=== PATIENT | female | born 1985 | race Caucasian/White ===

== ENCOUNTER 2017-06-24 05:59 | Inpatient (IN) | payer OTHER ==
[2017-06-24] MEDS ORDERED: Sodium Chloride 0.9% 10 ML Syringe FLUSH PRN (07:47)
[2017-06-24] MEDS ORDERED: Nalbuphine 20 MG/1 ML Amp IVPUSH PRN (07:47)
--- NOTE | 2017-06-24 07:57 | HP ---
DATE OF ADMISSION: 06/24/2017 ADMISSION DIAGNOSES: A 39 and 5/7th week intrauterine , history of previous section with desire for . HISTORY OF PRESENT ILLNESS: The patient is a 32-year-old, 4, para 3-0-0-3 white female who was admitted at 39 and 5/7th weeks gestational age with an EDGAR of 06/26/2017 for elective induction of labor for distance from the hospital. The patient lives in [place], [place]. She has had 1 section which was performed with her first for failure to progress. She has since had 2 successful vaginal births after section. The patient is aware of the process for trial of labor after section to achieve a vaginal after section, its risks, benefits, limitations, alternatives of care and followup. She wishes to proceed and has signed a consent. MARKETING PROJECT SPECIALIST HISTORY: 4, para 3-0-0-3. The patient has an EDGAR of 06/26/2017 as based upon a certain last menstrual period started on 09/09/2016 and lasting for approximately 5 days. She was not using any control at the time of conception. The patient has had an ultrasound done on 03/06/2017 at 24 weeks, which was consistent with her LMP dating. PAST OBSTETRIC HISTORY: Includes the followin. Male born on 07/22/2010 at 41 weeks' gestational age - 8 pounds 15 ounces - male - primary section for failure to progress. 2. Female infant born on [birth year]16/2012 at 41 weeks' gestational age after 12 hours of labor - normal spontaneous vaginal delivery - child's name is Mary Anthony. 3. Male infant born on 11/16/2013 at 40 and 3/7th weeks gestational age after 14 hours of labor - 8 pounds 7 ounces - [facility] - child's name is Kendrick Sierra. The patient was first seen for care on 12/11/2016 at 11 and 6/7th weeks gestational age. She was seen on a fairly regular basis. Her weight gain was from a pregravid weight of 160 pounds to a final weight of 193 pounds at last visit. Her vital signs remained stable throughout the course. Her fundal height growth was appropriate. The patient declined genetic screening. She notes increased distance from the hospital as she lives in [place], [place], approximately 2-1/2 to 3 hours from [place]. She is group B Strep negative. She plans on . She plans on doing a natural labor. LABORATORY TESTING: Shows blood to be O positive with a negative antibody screen. Hemoglobin at first visit was 14.1 g/dL. Platelets were 184,000. Pap smear was normal. Rubella titer showed immunity. RPR is nonreactive. Urine culture was negative. Hepatitis B and HIV assays were both negative. Chlamydia and gonorrhea assays both negative. Second trimester testing showed hemoglobin to be normal at 12.8 g/dL. Platelets were normal at 198,000. Her 1-hour GTT was normal at 130. Group B Strep screen was negative. ALLERGIES: 1. Ceclor which causes rash and vomiting. 2. Sulfa drugs, which cause rash and vomiting. CURRENT MEDICATIONS: vitamins 1 daily. PAST MEDICAL HISTORY: 1. Vaginal delivery x2. 2. Endometriosis diagnosed with laparoscopy in 2009. 3. History of mildly abnormal Pap smear in 2014. 4. Some mild depression after her first . Has not recurred with 2nd or 3rd pregnancies. PAST SURGICAL HISTORY: 1. Diagnostic laparoscopy for endometriosis in 2009. 2. Wrist surgery in 2007 and 2008. 3. Ear tubes as a child. 4. Tonsillectomy and adenoidectomy as a child. 5. in 2012 for failure to progress. FAMILY HISTORY: Mother has a history of ovarian cysts. Father is alive and well. One brother with questionable depression and alcohol overuse. Maternal grandmother secondary to stomach cancer. Maternal grandfather has had some heart disease, but is alive and generally doing well. Paternal grandmother is alive and well. Paternal grandfather secondary to lung cancer - was a smoker. No bleeding, clotting, anesthesia, or problems noted in the family. SOCIAL HISTORY: The patient is . is Marcelo Rico. They live in [place], [place]. She is a college graduate. She is a legal consultant. She does not use any significant amounts of alcohol, drugs, or tobacco. REVIEW OF SYSTEMS: GENERAL: The patient is doing well. Baby has been active. No concerns noted. SKIN: Negative. CARDIOVASCULAR: No chest pain or exercise intolerance. RESPIRATORY: No shortness of breath or infectious symptoms. BREASTS: Changes associated with . The patient plans to breastfeed. GASTROINTESTINAL: Negative. GENITOURINARY: Changes associated with including increase in fundal height. MUSCULOSKELETAL: Negative. NEUROLOGIC: Negative. PHYSICAL EXAMINATION: GENERAL: The patient is a well-developed, well-nourished, pleasant female, stated age, in no acute distress. She appears to be a good historian. VITAL SIGNS: Blood pressure on last evaluation in the clinic was 112/60, weight was 193, and heart rate was 144. Pregravid weight was 160. Height is 5 feet 5 inches. SKIN: Warm and dry without lesions. LUNGS: Clear with good breath sounds in all lung zhu. HEENT, NECK AND BACK: Within normal limits. CARDIOVASCULAR: Shows regular rate and rhythm without murmurs. BREASTS: Deferred having been done at first visit and found to be normal. ABDOMEN: Protuberant with with fundal height of 39+ cm. Baby is in a vertex presentation by Jerzy maneuvers. GENITAL: Shows cervix to be 2+ cm, 75% effaced, soft, -3 station, mid position. EXTREMITIES: Show no significant edema. NEUROLOGIC: Grossly within normal limits. ASSESSMENT: 1. A 39 and 5/7th week intrauterine , history of previous section with 2 successful VBACs since with desire for a trial of labor after section to achieve a vaginal after section. 2. Group B Strep screen is negative. 3. The patient plans to breastfeed. 4. Rubella titer shows immunity. 5. The patient desires natural labor. PLAN: 1. Artificial rupture of membranes/Pitocin induction of labor. The procedure, risks, benefits, special preparation as she is a to include labs, consent for and for repeat section, continuous monitoring, IV access. We will alert the OR and the anesthesia staff that the patient is a . 2. Support decision. 3. Natural labor or pain control as desired by the patient. MMODAL /[id number]
[2017-06-24] MEDS ORDERED: Oxytocin/Lactated Ringers 10 UNIT/1,000 ML BAG IV SCH ×2 (08:00→08:45)
[2017-06-24] MEDS: Lactated Ringers 1,000 ML IV SCH ×3 (08:55→17:19)
[2017-06-24] MEDS ORDERED: Lidocaine 1% 50 ML MDV INJECT ONE (12:00)
[2017-06-24] MEDS ORDERED: fentaNYL 100 MCG/2 ML SDV EPIDUR PRN (16:58)
[2017-06-24] MEDS ORDERED: diphenhydrAMINE 50 MG/ML SDV IVPUSH PRN (16:58)
[2017-06-24] MEDS ORDERED: ePHEDrine 50 MG/ML SDV IVPUSH PRN (16:58)
[2017-06-24] MEDS ORDERED: Bupivacaine/fentaNYL/NS 100 ML Bag EPIDUR SCH (17:00)
--- NOTE | 2017-06-24 17:31 | PCM.PREANE ---
Preanesthetic Assessment - Anesthesia/Transfusion/Family Hx Anesthesia History: Prior Anesthesia Without Reaction Family History of Anesthesia Reaction: No Transfusion History: No Prior Transfusion(s) Type of Transfusion Reactions: Reports: Unknown - Review of Systems General: No Symptoms Pulmonary: No Symptoms Cardiovascular: No Symptoms Gastrointestinal: No Symptoms Neurological: No Symptoms Other: Reports: None - Physical Assessment Pulse: 104 O2 Sat by Pulse Oximetry: 97 Respiratory Rate: 18 Blood Pressure: 118/72 Temperature: 36.2 C Vital Signs: Last Vital Signs Temp 36.2 C 06/24/17 07:47 Pulse 104 H 06/24/17 07:47 Resp 18 06/24/17 07:47 BP 118/72 06/24/17 07:47 Pulse Ox 97 06/24/17 07:47 Height: 1.7 m Weight: 91.217 kg ASA Class: 2 Mental Status: Alert & Oriented x3 Airway Class: Mallampati = 1 Dentition: Reports: Normal Dentition Thyro-Mental Finger Breadths: 3 Mouth Opening Finger Breadths: 3 ROM/Head Extension: Full Lungs: Clear to Auscultation, Normal Respiratory Effort Cardiovascular: Regular Rate, Regular Rhythm - Lab Values: Laboratory Last Values WBC 9.13 K/mm3 (3.98-10.04) 06/24/17 08:00 RBC 4.43 M/mm3 (3.98-5.22) 06/24/17 08:00 Hgb 12.5 gm/L (11.2-15.7) 06/24/17 08:00 Hct 38.2 % (34.1-44.9) 06/24/17 08:00 MCV 86.2 fl (79.4-94.8) 06/24/17 08:00 MCH 28.2 pg (25.6-32.2) 06/24/17 08:00 MCHC 32.7 g/dl (32.2-35.5) 06/24/17 08:00 RDW Std Deviation 42.0 fL (36.4-46.3) 06/24/17 08:00 Plt Count 166 K/mm3 (182-369) L 06/24/17 08:00 MPV 10.4 fl (9.4-12.3) 06/24/17 08:00 Neut % (Auto) 81.0 % (34.0-71.1) H 06/24/17 08:00 Lymph % (Auto) 12.9 % (19.3-51.7) L 06/24/17 08:00 Davie % (Auto) 4.3 % (4.7-12.5) L 06/24/17 08:00 Eos % (Auto) 1.2 (0.7-5.8) 06/24/17 08:00 Baso % (Auto) 0.2 % (0.1-1.2) 06/24/17 08:00 Neut # (Auto) 7.39 K/mm3 (1.56-6.13) H 06/24/17 08:00 Lymph # (Auto) 1.18 K/mm3 (1.18-3.74) 06/24/17 08:00 Davie # (Auto) 0.39 K/mm3 (0.24-0.36) H 06/24/17 08:00 Eos # (Auto) 0.11 K/mm3 (0.04-0.36) 06/24/17 08:00 Baso # (Auto) 0.02 K/mm3 (0.01-0.08) 06/24/17 08:00 Manual Slide Review Abnormal smear 06/24/17 08:00 Blood Type O POSITIVE 06/24/17 08:00 Gel Antibody Screen Negative 06/24/17 08:00 - Allergies Allergies/Adverse Reactions: Allergies Allergy/AdvReac Type Severity Reaction Status Date / Time cefaclor [From [facility]] Allergy Rash Verified 11/16/15 09:14 Sulfa (Sulfonamide Allergy Rash Verified 11/16/15 09:14 Antibiotics) - Anesthesia Plan Pre-Op Medication Ordered: None - Acknowledgements Anesthesia Type Planned: Epidural Pt an Appropriate Candidate for the Planned Anesthesia: Yes Alternatives and Risks of Anesthesia Discussed w Pt/Guardian: Yes Pt/Guardian Understands and Agrees with Anesthesia Plan: Yes PreAnesthesia Questionnaire Genitourinary History: Reports: None MUNICIPAL CLERK History: Reports: Endometriosis, , Other (See Below) Other OB/BYN History: Previous section x1 in 2013. Musculoskeletal History: Reports: Fracture Other Musculoskeletal History: toe and pinky fx - Past Surgical History HEENT Surgical History: Reports: Adenoidectomy, Myringotomy w Tube(s), Tonsillectomy Female Surgical History: Reports: Section Musculoskeletal Surgical History: Reports: Other (See Below) Other Musculoskeletal Surgeries/Procedures:: Wrist surgery in 2008 & 2009 - SUBSTANCE USE Smoking Status *Q: Never Smoker Tobacco Use Within Last Twelve Months: No Second Hand Smoke Exposure: No Recreational Drug Use History: No - HOME MEDS Home Medications: Home Meds PNV95/Ferrous Fumarate/FA [ Tablet] 1 each PO DAILY 05/16/14 [History] - CURRENT (IN HOUSE) MEDS Current Meds: Current Medications Diphenhydramine HCl (Benadryl) 25 mg IVPUSH Q6H PRN PRN Reason: Itching Ephedrine Sulfate (Ephedrine Sulfate) 5 mg IVPUSH ASDIRECTED PRN PRN Reason: HYPOTENTSION Fentanyl (Sublimaze) 100 mcg EPIDUR Q3H PRN PRN Reason: PAIN Last Admin: 06/24/17 17:23 Dose: 100 mcg Fentanyl/Bupivacaine HCl (Fentanyl/Bupivacaine/Ns 2 Mcg-0.125% 100 Ml) 100 ml EPIDUR ASDIRECTED MARTIN Last Admin: 06/24/17 17:24 Dose: 100 ml Lactated Ringer's (Ringers, Lactated) 1,000 mls @ 100 mls/hr IV ASDIRECTED MARTIN Last Admin: 06/24/17 17:19 Dose: 1,000 mls/hr Oxytocin/Lactated Ringer's (Pitocin In Lr 10 Units/1,000 Ml) 10 unit in 1,000 mls @ 12 mls/hr IV TITRATE MARTIN; 2 MUNITS/MIN PRN Reason: Protocol Last Titration: 06/24/17 17:15 Dose: 10 munits/min, 60 mls/hr Oxytocin/Lactated Ringer's (Pitocin In Lr 10 Units/1,000 Ml) 10 unit in 1,000 mls @ 12 mls/hr IV TITRATE MARTIN; 2 MUNITS/MIN PRN Reason: Protocol Nalbuphine HCl (Nubain) 10 mg IVPUSH Q2H PRN PRN Reason: Pain (moderate 4-6) Sodium Chloride (Saline Flush) 10 ml FLUSH ASDIRECTED PRN PRN Reason: Keep Vein Open Discontinued Medications Lidocaine HCl (Xylocaine 1%) 10 ml INJECT ONETIME ONE Stop: 06/24/17 12:01
[2017-06-24] MEDS ORDERED: Bupivacaine 0.25% 10 ML SDV ONE (22:22)
--- NOTE | 2017-06-24 23:07 | PCM.SN ---
- Free Text/Narrative Note: Delivery note: Chrissy is a 32-year-old 4 now para 4004 white female who was admitted this a.m. for elective induction of labor due to distance from the hospital. Patient was approximately 3 hours from the hospital. She is 39-5/7 weeks gestational age with an EDGAR of 06/26/2017. She is admitted and started on Pitocin per protocol. After short period of time artificial rupture membranes was undertaken with resultant clear amniotic fluid. She progressed slowly but steadily and became completely dilated by approximately 2210 hrs. on 06/24/2017. She then delivered a viable 7 pound 14.6 ounce (3590 g) male with Apgars of 8 and 9, a length of 21 inches in a left occiput anterior position. Patient had a first-degree perineal laceration which was repaired with 3-0 Monocryl using her labor epidural anesthesia for pain control. The umbilical cord was found be around baby's neck 2 loosely and was reduced over the baby's head. Umbilical cord had 3 vessels present. The cord was clamped 2 and cut by the baby's father. The baby was placed on mom's abdomen. He was dried and stimulated. Cord bloods obtained. Should be noted that Pitocin was administered IV after delivery of the baby. The placenta delivered in a Bermudez presentation, appeared intact and complete and was discarded per patient desire. Estimated blood loss was approximately 100 mL, patient plans to breast-feed. Condition: Good
[2017-06-24] MEDS ORDERED: Witch Hazel Medicated Pads 100/Jar TOP PRN (23:29)
[2017-06-24] MEDS ORDERED: Ibuprofen 600 MG Tab PO PRN (23:29)
[2017-06-24] MEDS ORDERED: Acetaminophen 325 MG Tab PO PRN (23:29)
[2017-06-24] MEDS ORDERED: Benzocaine/Menthol 20%-0.5% Spray 56 GM Canister TOP PRN (23:29)
[2017-06-24] MEDS ORDERED: Lanolin 100% Cream 7 GM Tube TOP PRN (23:29)
[2017-06-24] MEDS ORDERED: Docusate Sodium 100 MG Cap PO PRN (23:29)
--- NOTE | 2017-06-25 08:56 | PCM48HPAN ---
Post Anesthesia Note - EVALUATION WITHIN 48HRS OF ANESTHETIC Vital Signs in Normal Range: Yes Patient Participated in Evaluation: Yes Respiratory Function Stable: Yes Airway Patent: Yes Cardiovascular Function Stable: Yes Hydration Status Stable: Yes Pain Control Satisfactory: Yes Nausea and Vomiting Control Satisfactory: Yes Mental Status Recovered: Yes Pulse Rate: 69 Resp Rate: 15 Temperature: 97.0 F Blood Pressure: 101/62
[2017-06-25] MEDS ORDERED: Prenatal Multivitamin with Calcium/Folic Acid/Iron Tab PO SCH (09:00)
[2017-06-25] MEDS ORDERED: Oxymetazoline 0.05% Nasal Spray 15 ML Bottle NAS PRN (18:30)
[2017-06-25] MEDS ORDERED: Benzonatate 100 MG Cap PO PRN (18:30)
[2017-06-26 04:45] VITALS: BP 106/57
--- NOTE | 2017-06-26 07:09 | PCM.DCSUM1 ---
Discharge Summary - Hospital Course Free Text/Narrative:: Chrissy is a 32-year-old 4 now para 4004 white female who was admitted this a.m. for elective induction of labor due to distance from the hospital. Patient was approximately 3 hours from the hospital. She is 39-5/7 weeks gestational age with an EDGAR of 06/26/2017. She is admitted and started on Pitocin per protocol. After short period of time artificial rupture membranes was undertaken with resultant clear amniotic fluid. She progressed slowly but steadily and became completely dilated by approximately 2210 hrs. on 06/24/2017. She then delivered a viable 7 pound 14.6 ounce (3590 g) male with Apgars of 8 and 9, a length of 21 inches in a left occiput anterior position. Patient had a first-degree perineal laceration which was repaired with 3-0 Monocryl using her labor epidural anesthesia for pain control. The umbilical cord was found be around baby's neck 2 loosely and was reduced over the baby's head. Umbilical cord had 3 vessels present. The cord was clamped 2 and cut by the baby's father. The baby was placed on mom's abdomen. He was dried and stimulated. Cord bloods obtained. Should be noted that Pitocin was administered IV after delivery of the baby. The placenta delivered in a Bermudez presentation, appeared intact and complete and was discarded per patient desire. Estimated blood loss was approximately 100 mL, patient plans to breast-feed. patient was done well. She is ambulating well, has normal vital signs. Is afebrile. Follow up CBC is performed. Minimal lochia noted. Breast- feeding without concern. Patient desiring discharge home. - Discharge Data Discharge Date: 06/26/17 Discharge Disposition: Home, Self-Care 01 Condition: Good - Patient Instructions Diet: Regular Diet as Tolerated (Nursing diet with increased calories and calcium as recommended) Activity: As Tolerated (No intercourse or tampons until bleeding resolves) Driving: May Drive Today Showering/Bathing: May Shower (May take a bath) Notify Provider of: Fever, Increased Pain, Swelling and Redness, Nausea and/or Vomiting - Discharge Plan Home Medications: Home Meds PNV95/Ferrous Fumarate/FA [ Tablet] 1 each PO DAILY 05/16/14 [History] Acetaminophen [Tylenol] 650 mg PO Q4H PRN tablet 06/26/17 [Rx] Ibuprofen [IJD: Ibuprofen] 600 mg PO Q4H PRN tablet 06/26/17 [Rx] Oxymetazoline [Afrin Original 0.05% Nasal [place]] 0 ml LAQUITA BID PRN bottle [Rx] Referrals: Wolf Ohara MD [Primary Care Provider] - (Return to clinicDr. Ohara2 weeks.) - Discharge Summary/Plan Comment DC Time >30 min.: No Discharge Summary/Plan Comment: Discharge instructions: 1. Discharge home 2. Diet, activity and follow-up discussed with patient. Recommend nursing diet with increased calories and calcium. 3. Precautions given concern increased pain, bleeding, temperature, signs/ symptoms of DVT/PE. 4. Medications per home medication was printed, discussed with and given to the patient. 5. Return to clinic-Dr. Ohara[facility] in 2 weeks. Diagnosis: Term -delivered Condition: Good - Patient Data Vitals - Most Recent: Last Vital Signs Temp 36.6 C 06/26/17 03:40 Pulse 74 06/26/17 03:40 Resp 14 06/26/17 03:40 BP 106/57 L 06/26/17 03:40 Pulse Ox 98 06/26/17 03:40 Weight - Most Recent: 91.217 kg I&O - Last 24 hours: Intake & Output 06/25/17 06/26/17 06/26/17 22:59 06:59 14:59 Intake Total 120 Balance 120 Lab Results - Last 24 hrs: Laboratory Results - last 24 hr 06/26/17 Range/Units 05:40 WBC 8.81 (3.98-10.04) K/mm3 RBC 4.01 (3.98-5.22) M/mm3 Hgb 11.5 (11.2-15.7) gm/L Hct 35.2 (34.1-44.9) % MCV 87.8 (79.4-94.8) fl MCH 28.7 (25.6-32.2) pg MCHC 32.7 (32.2-35.5) g/dl RDW Std Deviation 42.7 (36.4-46.3) fL Plt Count 166 L (182-369) K/mm3 MPV 10.7 (9.4-12.3) fl Med Orders - Current: Current Medications Acetaminophen (Tylenol) 650 mg PO Q4H PRN PRN Reason: mild pain or fever Benzocaine/Menthol (Dermoplast Pain Relief [place]) 0 gm TOP ASDIRECTED PRN PRN Reason: Perineal Comfort Measure Last Admin: 06/25/17 00:44 Dose: 1 can Benzonatate (Tessalon Perles) 100 mg PO TID PRN PRN Reason: Cough Last Admin: 06/25/17 19:26 Dose: 100 mg Docusate Sodium (Colace) 100 mg PO BID PRN PRN Reason: Constipation Emollient Ointment (Lansinoh Hpa) 0 gm TOP ASDIRECTED PRN PRN Reason: Sore Nipples Ibuprofen (Motrin) 600 mg PO Q4H PRN PRN Reason: Mild pain or fever Last Admin: 06/25/17 00:44 Dose: 600 mg Oxymetazoline HCl (Afrin Original 0.05% Nasal [place]) 0 ml LAQUITA BID PRN PRN Reason: for nasal congestion Last Admin: 06/25/17 20:08 Dose: 2 spray Prenat Multivit/Wood Science Professor/Iron/Folic Ac ( Plus Iron) 1 each PO DAILY MARTIN Last Admin: 06/25/17 11:09 Dose: Not Given Carine Puga (Abelino) 1 pad TOP ASDIRECTED PRN PRN Reason: Hemorrhoid pain Last Admin: 06/25/17 00:44 Dose: 1 canister Discontinued Medications Bupivacaine HCl (Sensorcaine-Mpf 0.25%) 10 ml .ROUTE .STK-MED ONE Stop: 06/24/17 22:23 Diphenhydramine HCl (Benadryl) 25 mg IVPUSH Q6H PRN PRN Reason: Itching Ephedrine Sulfate (Ephedrine Sulfate) 5 mg IVPUSH ASDIRECTED PRN PRN Reason: HYPOTENTSION Fentanyl (Sublimaze) 100 mcg EPIDUR Q3H PRN PRN Reason: PAIN Last Admin: 06/24/17 17:23 Dose: 100 mcg Fentanyl/Bupivacaine HCl (Fentanyl/Bupivacaine/Ns 2 Mcg-0.125% 100 Ml) 100 ml EPIDUR ASDIRECTED MARTIN Last Admin: 06/24/17 17:24 Dose: 100 ml Lactated Ringer's (Ringers, Lactated) 1,000 mls @ 100 mls/hr IV ASDIRECTED MARTIN Last Admin: 06/24/17 17:19 Dose: 1,000 mls/hr Oxytocin/Lactated Ringer's (Pitocin In Lr 10 Units/1,000 Ml) 10 unit in 1,000 mls @ 12 mls/hr IV TITRATE MARTIN; 2 MUNITS/MIN PRN Reason: Protocol Last Titration: 06/24/17 18:00 Dose: 12 munits/min, 72 mls/hr Oxytocin/Lactated Ringer's (Pitocin In Lr 10 Units/1,000 Ml) 10 unit in 1,000 mls @ 12 mls/hr IV TITRATE MARTIN; 2 MUNITS/MIN PRN Reason: Protocol Last Titration: 06/24/17 23:00 Dose: 125 mls/hr Lidocaine HCl (Xylocaine 1%) 10 ml INJECT ONETIME ONE Stop: 06/24/17 12:01 Nalbuphine HCl (Nubain) 10 mg IVPUSH Q2H PRN PRN Reason: Pain (moderate 4-6) Sodium Chloride (Saline Flush) 10 ml FLUSH ASDIRECTED PRN PRN Reason: Keep Vein Open *Q Meaningful Use (DIS) - VTE *Q VTE Criteria *Q: - Stroke *Q Stroke Criteria *Q: - AMI *Q AMI Criteria *Q:
== END 2017-06-26 09:41 | disposition home or self-care (01) | DRG 775 ==
LOC: JD.OB 07:07 → OBSVTOIN 22:30 → JD.OB 22:30
PROVIDERS: ADMIT Obstetrics & Gynecology; ATTEND Obstetrics & Gynecology
PROC: 10E0XZZ Delivery of Products of Conception, External Approach (ICD-10-PCS; principal; 2017-06-24)
PROC: 3E033VJ Introduction of Other Hormone into Peripheral Vein, Percutaneous Approach (ICD-10-PCS; 2017-06-24)
PROC: 10907ZC Drainage of Amniotic Fluid, Therapeutic from Products of Conception, Via Natural or Artificial Opening (ICD-10-PCS; 2017-06-24)
PROC: 0HQ9XZZ Repair Perineum Skin, External Approach (ICD-10-PCS; 2017-06-24)
PROC: 00HU33Z Insertion of Infusion Device into Spinal Canal, Percutaneous Approach (ICD-10-PCS; 2017-06-24)
PROC: 3E0R3BZ Introduction of Anesthetic Agent into Spinal Canal, Percutaneous Approach (ICD-10-PCS; 2017-06-24)
DX: O34.211 Maternal care for low transverse scar from previous cesarean delivery (principal); N85.8 Other specified noninflammatory disorders of uterus; O70.0 First degree perineal laceration during delivery; O69.81X0 Labor and delivery complicated by cord around neck, without compression, not applicable or unspecified; Z37.0 Single live birth; Z3A.39 39 weeks gestation of pregnancy; Z88.2 Allergy status to sulfonamides; Z88.8 Allergy status to other drugs, medicaments and biological substances
CPT/HCPCS: 36415; 51702; 59300; 59409; 85025; 85027; 86850; 86900; 86901; A9270-GY; J2590; J3010; J7120